=== PATIENT | male | born 2000 | race Hispanic/Latino ===

== ENCOUNTER 2022-10-17 07:06 | Emergency (ER) | payer SELFPAY ==
[2022-10-17] MEDS ORDERED: Ketorolac Tromethamine 30 MG/ML VIAL ONE (07:34)
[2022-10-17 08:46] LABS: SARS-CoV-2 NAA Rapid Test Not Detected (NotDetected)
== END 2022-10-17 09:00 | disposition home or self-care (01) ==
LOC: CSHERS 07:06
DX: J11.1 Influenza due to unidentified influenza virus with other respiratory manifestations (principal); Z20.822 Contact with and (suspected) exposure to COVID-19
CPT/HCPCS: 71045; 96374; J1885

== ENCOUNTER 2022-12-07 18:30 | Emergency (ER) | payer OTHER, SELFPAY | END 2022-12-07 20:43 | disposition home or self-care (01) | LOC: CSHERS 18:30 | DX: Z04.1 Encounter for examination and observation following transport accident (principal) | CPT/HCPCS: 99281 ==